=== PATIENT | female | born 2000 | race Caucasian/White ===

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

== ENCOUNTER 2018-02-09 20:01 | Emergency (ER) | payer MEDICAID ==
[2018-02-09] MEDS ORDERED: ACETAMINOPHEN 325 MG TABLET PO ONE (20:32)
[2018-02-09] MEDS ORDERED: NORMAL SALINE 1000 ML 1,000 ML IV ONE (20:34)
--- NOTE | 2018-02-09 20:37 | ER Document Report ---
ED GI/ - General Chief Complaint: Abdominal Pain Stated Complaint: STOMACH PAIN Time Seen by Provider: 02/09/18 20:27 Notes: Patient is a 17-year-old female, at 19 weeks gestation by first trimester ultrasound, that comes to the emergency department for chief complaint of mid abdominal pain that started yesterday, she states pain is sharp and has become constant. She denies nausea, vomiting, dysuria, vaginal bleeding, fever/ chills. She denies trauma. She states she ate prior to arrival without any difficulty. She states she had a normal bowel movement this evening, no constipation, denies hematochezia. Denies any daily medications, denies any surgeries, denies smoking, alcohol, recreational drugs. She has had care. Family at bedside. TRAVEL OUTSIDE OF THE [place] IN LAST 30 DAYS: No - Related Data Allergies/Adverse Reactions: shellfish derived Allergy (Verified 11/04/17 18:34) Past Medical History - General Information source: Patient - Social History Smoking Status: Never Smoker Chew tobacco use (# tins/day): No Frequency of alcohol use: None Drug Abuse: None Lives with: Family Family History: Reviewed & Not Pertinent Patient has suicidal ideation: No Patient has homicidal ideation: No Pulmonary Medical History: Reports: Hx Asthma Neurological Medical History: Reports: Hx Migraine Renal/ Medical History: Denies: Hx Peritoneal Dialysis Psychiatric Medical History: Reports: Hx Anxiety, Hx Depression - Immunizations Immunizations up to date: Yes Hx Diphtheria, Pertussis, Tetanus Vaccination: Yes Review of Systems - Review of Systems Constitutional: No symptoms reported EENT: No symptoms reported Cardiovascular: No symptoms reported Respiratory: No symptoms reported Gastrointestinal: See HPI Genitourinary: See HPI Female Genitourinary: See HPI Musculoskeletal: No symptoms reported Skin: No symptoms reported Hematologic/Lymphatic: No symptoms reported Neurological/Psychological: No symptoms reported Physical Exam - Vital signs Vitals: Temp Pulse Resp BP Pulse Ox 98.3 F 110 H 18 107/65 99 02/09/18 20:18 02/09/18 20:18 02/09/18 20:18 02/09/18 20:18 02/09/18 20:18 - Notes Notes: GENERAL: Alert, interacts well. No acute distress. HEAD: Normocephalic, atraumatic. EYES: Pupils equal, round, and reactive to light. Extraocular movements intact. ENT: Oral mucosa dry, tongue midline. Oropharynx unremarkable. Airway patent. Nares patent, no nasal septal hematoma, TM's intact. NECK: Full range of motion. Supple. Trachea midline. LUNGS: Clear to auscultation bilaterally, no wheezes, rales, or rhonchi. No respiratory distress. HEART: Mild tachycardia, normal rhythm, no murmur. ABDOMEN: Minimal generalized abdominal tenderness, nonspecific, minimally gravid abdomen. Unremarkable bowel sounds. GENITOURINARY: Deferred EXTREMITIES: Moves all 4 extremities spontaneously. No edema, normal radial and dorsalis pedis pulses bilaterally. No cyanosis. BACK: no cervical, thoracic, lumbar midline tenderness. No saddle anesthesia, normal distal neurovascular exam. NEUROLOGICAL: Alert and oriented x3. Normal speech. [cranial nerves II through XII grossly intact]. PSYCH: Normal affect, normal mood. SKIN: Warm, dry, normal turgor. No rashes or lesions noted. Course - Re-evaluation Re-evalutation: Patient alert, smiling, well-appearing. She has very minimal generalized abdominal tenderness, this is very nonspecific on examination. She states she is feeling baby move. CBC unremarkable. Chemistry nonspecific, lipase is borderline elevated at 400 but patient has a completely benign epigastric area and when I went back into reevaluate the patient after all her results have been completed patient was eating without any symptoms at all. Very low suspicion of acute pancreatitis. Ultrasound without any acute findings. Urinalysis shows borderline infection, overall chemistries and urine indicate some dehydration, patient was initially tachycardic with dry mucous membranes but this resolved after IV fluids. After IV fluids patient states she feels great and she is ready to leave. Patient will be treated with Keflex for possible UTI and , discussed follow-up , discussed return precautions, patient and family state understanding and agreement. - Vital Signs Vital signs: Temp Pulse Resp BP Pulse Ox 98.3 F 81 16 106/66 100 02/09/18 22:44 02/09/18 22:44 02/09/18 22:44 02/09/18 22:44 02/09/18 22:44 - Laboratory Result Diagrams: 02/09/18 21:14 02/09/18 21:14 Laboratory results interpreted by me: 02/09/18 02/09/18 02/09/18 21:14 21:14 22:00 RBC 3.59 L Hgb 11.1 L Hct 30.6 L MCHC 36.4 H Creatinine 0.45 L Alkaline Phosphatase 44 L Lipase 413.3 H Urine Urobilinogen 2.0 H Ur Leukocyte Esterase TRACE H Discharge - Discharge Clinical Impression: Abdominal pain affecting Condition: Stable Disposition: HOME, SELF-CARE Additional Instructions: Your evaluation is consistent with dehydration and likely developing urinary tract infection. Take Keflex as prescribed, improve her hydration at home. Ultrasound does not show any concerning abnormalities with the . Follow-up with your [employer]. Return to the emergency department for any concerning or worsening symptoms including vomiting, severe pain, fever, passing out, or any other concerning or worsening symptoms. Prescriptions: Cephalexin Monohydrate [Keflex 500 mg Capsule] 500 mg PO BID #10 capsule
[2018-02-09 21:25] LABS: ABSOLUTE EOSINOPHILS # (AUTO) 0.1 10^3/uL (0.0-0.6); ABSOLUTE LYMPHOCYTES (AUTO) 2.1 10^3/uL (0.5-4.7); ABSOLUTE MONOCYTES (AUTO) 0.6 10^3/uL (0.1-1.4); ABSOLUTE NEUT (AUTO) 5.5 10^3/uL (1.7-8.2); BASOPHILS % (AUTO) 0.2 % (0-2); EOSINOPHILS % (AUTO) 0.6 % (0-6); HEMATOCRIT 30.6 % (36.0-47.0); HEMOGLOBIN 11.1 g/dL (12.0-15.5); LYMPHOCYTES % (AUTO) 25.7 % (13-45); MEAN CORPUSCULAR HGB CONC 36.4 g/dL (32.0-36.0); MEAN CORPUSCULAR VOLUME 85 fl (80-97); MONOCYTES % (AUTO) 6.7 % (3-13); PLATELET COUNT 270 10^3/uL (150-450); RED BLOOD COUNT 3.59 10^6/uL (3.72-5.28); RED CELL DISTRIBUTION WIDTH 12.9 % (11.5-14.0); SEGMENTED NEUTROPHILS % (AUTO) 66.8 % (42-78); TOTAL CELLS COUNTED % (AUTO) 100 %; WHITE BLOOD COUNT 8.2 10^3/uL (4.0-10.5)
[2018-02-09 21:50] LABS: ALANINE AMINOTRANSFERASE 17 U/L (5-35); ALBUMIN 4.2 g/dL (3.7-5.6); ALKALINE PHOSPHATASE 44 U/L (50-135); ANION GAP 9 (5-19); ASPARTATE AMINO TRANSFERASE 16 U/L (5-30); BILIRUBIN,DIRECT 0.2 mg/dL (0.0-0.4); BILIRUBIN,TOTAL 0.5 mg/dL (0.2-1.3); BLOOD UREA NITROGEN 9 mg/dL (7-20); CALCIUM 9.6 mg/dL (8.4-10.2); CARBON DIOXIDE 24 mmol/L (22-30); CHLORIDE 106 mmol/L (98-107); GLUCOSE 102 mg/dL (75-110); LIPASE 413.3 U/L (23-300); POTASSIUM 3.9 mmol/L (3.6-5.0); SODIUM 138.6 mmol/L (137-145); TOTAL PROTEIN 6.9 g/dL (6.3-8.2)
[2018-02-09 22:28] LABS: APPEARANCE,URINE SLIGHTLY-CLOUDY; BILIRUBIN,URINE NEGATIVE (NEGATIVE); GLUCOSE, URINE NEGATIVE (NEGATIVE); KETONES,URINE NEGATIVE (NEGATIVE); LEUKOCYTE ESTERASE,URINE TRACE (NEGATIVE); NITRITE,URINE NEGATIVE (NEGATIVE); PROTEIN,URINE NEGATIVE (NEGATIVE); URINE SPECIFIC GRAVITY 1.025
[2018-02-09 22:29] LABS: COLOR,URINE YELLOW
--- NOTE | 2018-02-09 22:30 | RADIOLOGY REPORT (SQ) ---
EXAM DESCRIPTION: US LIMITED COMPLETED DATE/TME: 02/09/2018 20:33 CLINICAL HISTORY: 17 years, Female, sharp mid abd pain COMPARISON: None. TECHNIQUE: Transverse and longitudinal transabdominal sonographic images of the pelvis in a second/third trimester patient LIMITATIONS: None. FINDINGS: There is a single, live intrauterine gestation in the breech presentation. The placenta is posterior in location with a grade 1 echotexture. No evidence for previa. Cervical length is 4.5 cm. A detailed anatomic assessment was not performed at this time. Current ultrasound age is 18 weeks 6 days. No free fluid in the maternal pelvis. Some equivocal echogenic debris within the maternal urinary bladder. Correlate with urinalysis. IMPRESSION: Single, live intrauterine gestation with current ultrasound age 18 weeks 6 days. Questionable echogenic debris within the maternal urinary bladder. Correlate with urinalysis. Continued nonemergent obstetric follow-up recommended. copyright 2010 [employer]- All Rights Reserved
[2018-02-09] MEDS ORDERED: CEPHALEXIN 500 MG CAPSULE PO ONE (22:41)
[2018-02-09 22:45] VITALS: BP 106/66
== END 2018-02-09 22:51 | disposition home or self-care (01) ==
LOC: ER 20:01
DX: O26.892 Other specified pregnancy related conditions, second trimester (principal); R10.9 Unspecified abdominal pain; O99.512 Diseases of the respiratory system complicating pregnancy, second trimester; J45.909 Unspecified asthma, uncomplicated; Z3A.19 19 weeks gestation of pregnancy
CPT/HCPCS: 99284; 36415; 87086; 83690; 85025; 87088; 80053; 81001; 76815; J3490; J7030

== ENCOUNTER 2018-03-14 23:21 | Outpatient (CLI) | payer MEDICAID ==
[2018-03-15 00:19] LABS: APPEARANCE,URINE CLEAR; BILIRUBIN,URINE NEGATIVE (NEGATIVE); COLOR,URINE STRAW; GLUCOSE, URINE 50 mg/dL (NEGATIVE); KETONES,URINE TRACE mg/dL (NEGATIVE); LEUKOCYTE ESTERASE,URINE SMALL (NEGATIVE); NITRITE,URINE NEGATIVE (NEGATIVE); PROTEIN,URINE NEGATIVE (NEGATIVE); URINE SPECIFIC GRAVITY 1.006; UROBILINOGEN,URINE NEGATIVE mg/dL (<2.0)
[2018-03-15 00:34] LABS: URINE AMPHETAMINES SCREEN NEGATIVE; URINE BARBITURATES SCREEN NEGATIVE; URINE BENZODIAZEPINES SCREEN NEGATIVE; URINE COCAINE SCREEN NEGATIVE; URINE MARIJUANA (THC) SCREEN NEGATIVE; URINE METHADONE SCREEN NEGATIVE; URINE PHENCYCLIDINE SCREEN NEGATIVE
== END 2018-03-15 00:50 | disposition home or self-care (01) ==
LOC: LC 23:21
PROVIDERS: ATTEND Obstetrics & Gynecology
PROC: 4A1HXCZ Monitoring of Products of Conception, Cardiac Rate, External Approach (ICD-10-PCS; principal; 2018-03-14)
DX: O47.02 False labor before 37 completed weeks of gestation, second trimester (principal); Z3A.23 23 weeks gestation of pregnancy
CPT/HCPCS: 80307; 81001

== ENCOUNTER 2018-03-17 23:43 | Outpatient (CLI) | payer MEDICAID ==
[2018-03-18 00:20] LABS: APPEARANCE,URINE CLEAR; BILIRUBIN,URINE NEGATIVE (NEGATIVE); COLOR,URINE STRAW; GLUCOSE, URINE NEGATIVE (NEGATIVE); KETONES,URINE NEGATIVE (NEGATIVE); LEUKOCYTE ESTERASE,URINE SMALL (NEGATIVE); NITRITE,URINE NEGATIVE (NEGATIVE); PROTEIN,URINE NEGATIVE (NEGATIVE); URINE SPECIFIC GRAVITY 1.004; UROBILINOGEN,URINE NEGATIVE mg/dL (<2.0)
[2018-03-18] MEDS ORDERED: LIDOCAINE 1% INJ-PF (10 MG/ML) 30 ML SDV INJ ONE (00:26)
[2018-03-18] MEDS ORDERED: CEFTRIAXONE INJ 1000 MG VIAL IM ONE (00:26)
[2018-03-18] MEDS ORDERED: CEFTRIAXONE INJ 1000 MG VIAL ONE (00:27)
[2018-03-18] MEDS ORDERED: LIDOCAINE 1% INJ-PF (10 MG/ML) 30 ML SDV ONE (00:27)
[2018-03-18 00:33] LABS: URINE AMPHETAMINES SCREEN NEGATIVE; URINE BARBITURATES SCREEN NEGATIVE; URINE BENZODIAZEPINES SCREEN NEGATIVE; URINE COCAINE SCREEN NEGATIVE; URINE MARIJUANA (THC) SCREEN NEGATIVE; URINE METHADONE SCREEN NEGATIVE; URINE PHENCYCLIDINE SCREEN NEGATIVE
== END 2018-03-18 00:23 | disposition home or self-care (01) ==
LOC: LC 23:43
PROVIDERS: ATTEND Obstetrics & Gynecology Gynecology
PROC: 4A1HXCZ Monitoring of Products of Conception, Cardiac Rate, External Approach (ICD-10-PCS; principal; 2018-03-17)
DX: O46.92 Antepartum hemorrhage, unspecified, second trimester (principal); O99.512 Diseases of the respiratory system complicating pregnancy, second trimester; J45.909 Unspecified asthma, uncomplicated; O99.342 Other mental disorders complicating pregnancy, second trimester; F84.5 Asperger's syndrome; Z3A.24 24 weeks gestation of pregnancy
CPT/HCPCS: 59899; 87086; 81001; 80307; J3490; J0696

== ENCOUNTER 2018-04-20 23:09 | Emergency (ER) | payer MEDICAID ==
[2018-04-20 23:43] VITALS: BP 108/73
[2018-04-21] MEDS ORDERED: IPRATROPIUM/ALBUTEROL 0.5-2.5 MG/3 ML AMPUL NEB ONE
--- NOTE | 2018-04-21 00:05 | ER Document Report ---
ED General - General Chief Complaint: Breathing Difficulty Stated Complaint: DIFFICULTY BREATHING Time Seen by Provider: 04/20/18 23:41 Notes: Patient is a 17-year-old female currently 27 weeks , past medical history of asthma and psychiatric comorbidities who presents complaining of 3-4 days of cough, nasal congestion, and feeling short of breath. States symptoms started gradually, have been worsening since onset. Nothing seems to improve or worsen her symptoms. Multiple sick contacts with similar symptoms. Notes she feels somewhat short of breath as well prompting her to come to the emergency department for assessment. Has a history of similar symptoms in the past. Has not seen her primary doctor regarding today's concerns. She denies pleuritic pain, chest wall pain, fever, unilateral leg swelling, or history of DVT or pulmonary embolus. TRAVEL OUTSIDE OF THE [place] IN LAST 30 DAYS: No - Related Data Allergies/Adverse Reactions: shellfish derived Allergy (Mild, Verified 04/20/18 23:43) Past Medical History - General Information source: Patient - Social History Smoking Status: Never Smoker Frequency of alcohol use: None Drug Abuse: None Lives with: Spouse/Significant other Family History: Reviewed & Not Pertinent Patient has suicidal ideation: No Patient has homicidal ideation: No Pulmonary Medical History: Reports: Hx Asthma Neurological Medical History: Reports: Hx Migraine Renal/ Medical History: Denies: Hx Peritoneal Dialysis Psychiatric Medical History: Reports: Hx Anxiety, Hx Depression - Immunizations Immunizations up to date: Yes Hx Diphtheria, Pertussis, Tetanus Vaccination: Yes Review of Systems - Review of Systems Notes: Constitutional: Negative for fever. HENT: Negative for sore throat. Positive for sinus congestion Eyes: Negative for visual changes. Cardiovascular: Negative for chest pain. Respiratory: Positive for cough and shortness of breath Gastrointestinal: Negative for abdominal pain, vomiting or diarrhea. Genitourinary: Negative for dysuria. Musculoskeletal: Negative for back pain. Skin: Negative for rash. Neurological: Negative for headaches, weakness or numbness. 10 point ROS negative except as marked above and in HPI. Physical Exam - Vital signs Vitals: Temp Pulse Resp BP Pulse Ox 98 F 130 H 26 H 92/47 L 100 04/20/18 23:15 04/20/18 23:15 04/20/18 23:15 04/20/18 23:15 04/20/18 23:15 Interpretation: Hypotensive - Mild initial hypertension resolved at the time of my assessment. Heart rate down to 107 at the time of my assessment., Tachycardic Notes: PHYSICAL EXAMINATION: GENERAL: Well-appearing, well-nourished and in no acute distress. Repeatedly coughing HEAD: Atraumatic, normocephalic. EYES: Pupils equal round and reactive to light, extraocular movements intact, sclera anicteric, conjunctiva are normal. ENT: nares patent, oropharynx clear without exudates. Moist mucous membranes. NECK: Normal range of motion, supple without lymphadenopathy LUNGS: Breath sounds clear to auscultation bilaterally and equal. No wheezes rales or rhonchi. HEART: Regular tachycardia without murmurs ABDOMEN: Soft, nontender, normoactive bowel sounds. No guarding, no rebound. No masses appreciated. EXTREMITIES: Normal range of motion, no pitting or edema. No cyanosis. NEUROLOGICAL: No focal neurological deficits. Moves all extremities spontaneously and on command. PSYCH: Normal mood, normal affect. SKIN: Warm, Dry, normal turgor, no rashes or lesions noted. Course - Re-evaluation Re-evalutation: 04/21/18 00:01 Presentation event a well-appearing 17-year-old female in no acute distress complaining of 2-3 days of cough, nasal congestion and feelings of shortness of breath. Patient states a history of asthma, feels like this has gotten out of control. Patient is overall extremely well appearance on my initial exam. No tachypnea, retractions or or abnormal vital signs be a mild tachycardia with a heart rate of 107 at the time of my initial evaluation. Patient denies pleuritic pain, no unilateral leg swelling, no hemoptysis. She denies chest pain. Although she is mildly tachycardic at presentation, review of previous visits reveals she is consistently tachycardic even when she is not . I do not believe that workup for a pulmonary embolus is indicated given the patient's symptomology consistent with an infectious presentation including nasal congestion, sinus pressure and an obvious cough during exam. Lung exam is clear without any notable findings. Patient has declined chest x-ray which I believe is appropriate given low probability for pneumonia given absence of fever, hypoxemia or tachypnea. She has been given an albuterol inhaler here in the some improvement of her symptoms. At this time will discharge with return precautions and follow-up recommendations. Verbal discharge instructions given a the bedside and opportunity for questions given. Medication warnings reviewed. Patient is in agreement with this plan and has verbalized understanding of return precautions and the need for primary care follow-up in the next 24-72 hours. - Vital Signs Vital signs: Temp Pulse Resp BP Pulse Ox 98 F 130 H 20 108/73 100 04/20/18 23:15 04/20/18 23:15 04/20/18 23:36 04/20/18 23:36 04/20/18 23:37 Discharge - Discharge Clinical Impression: Shortness of breath, Viral upper respiratory tract infection with cough Condition: Good Disposition: HOME, SELF-CARE Additional Instructions: Your symptoms are likely due to a viral infection. The only treatment at this time is supportive care including drinking plenty of fluids, Tylenol, as and use of the inhaler with which you have been sent home with as needed for coughing and feelings of shortness of breath. Your symptoms will likely last for 7-10 days. Please return to the emergency department immediately if you become confused, have persistent vomiting, pass out, have severe headache, or have any other symptoms that are worrisome to you. Follow-up with your primary care doctor in the next several days.
== END 2018-04-21 00:20 | disposition home or self-care (01) ==
LOC: ER 23:09
DX: O99.512 Diseases of the respiratory system complicating pregnancy, second trimester (principal); J06.9 Acute upper respiratory infection, unspecified; B97.89 Other viral agents as the cause of diseases classified elsewhere; J45.909 Unspecified asthma, uncomplicated; O26.892 Other specified pregnancy related conditions, second trimester; R05 Cough; R06.02 Shortness of breath; R00.0 Tachycardia, unspecified; R09.81 Nasal congestion; Z3A.27 27 weeks gestation of pregnancy; Z91.013 Allergy to seafood
CPT/HCPCS: 94640; 99284; J7620

== ENCOUNTER 2018-04-26 17:39 | Emergency (ER) | payer MEDICAID ==
[2018-04-26] MEDS ORDERED: ACETAMINOPHEN 325 MG TABLET PO ONE (17:47)
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
--- NOTE | 2018-04-26 20:02 | RADIOLOGY REPORT (SQ) ---
EXAM DESCRIPTION: ELBOW LEFT AP/LATERAL COMPLETED DATE/TIME: 04/26/2018 7:31 pm REASON FOR STUDY: fall, pain COMPARISON: None. EXAM PARAMETERS: NUMBER OF VIEWS: Two view. TECHNIQUE: AP and lateral radiographic images acquired of the left elbow. LIMITATIONS: None. FINDINGS: MINERALIZATION: Normal. BONES: No acute fracture or dislocation. No worrisome bone lesions. JOINTS: No effusion. SOFT TISSUES: No significant soft tissue swelling. No radiopaque foreign body. OTHER: No other significant finding. IMPRESSION: NO FRACTURE. TECHNICAL DOCUMENTATION: JOB ID: [id number] [place]-72 2010 [employer]- All Rights Reserved Reading location - IP/workstation name: [email or web address]
--- NOTE | 2018-04-26 20:13 | RADIOLOGY REPORT (SQ) ---
EXAM DESCRIPTION: XR WRIST 3 OR MORE VIEWS COMPLETED DATE/TME: 04/26/2018 19:11 CLINICAL HISTORY: 17 years, Female, fall, pain COMPARISON: None. FINDINGS: No fracture or dislocation. Soft tissues are unremarkable. IMPRESSION: No acute abnormality.
[2018-04-26 21:03] VITALS: BP 103/56
== END 2018-04-26 21:05 | disposition home or self-care (01) ==
LOC: ER 17:39
DX: O9A.212 Injury, poisoning and certain other consequences of external causes complicating pregnancy, second trimester (principal); S69.92XA Unspecified injury of left wrist, hand and finger(s), initial encounter; S59.902A Unspecified injury of left elbow, initial encounter; O26.892 Other specified pregnancy related conditions, second trimester; M25.552 Pain in left hip; O99.512 Diseases of the respiratory system complicating pregnancy, second trimester; J45.909 Unspecified asthma, uncomplicated; Z3A.26 26 weeks gestation of pregnancy; W01.0XXA Fall on same level from slipping, tripping and stumbling without subsequent striking against object, initial encounter
CPT/HCPCS: 99283; 73070; 73110; J3490

== ENCOUNTER 2018-05-01 10:38 | Emergency (ER) | payer MEDICAID ==
[2018-05-01] MEDS ORDERED: DEXTROSE 5%-1/2 NORMAL SALINE 500 ML IV ONE (11:28)
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
[2018-05-01 12:02] LABS: APPEARANCE,URINE CLOUDY; BILIRUBIN,URINE NEGATIVE (NEGATIVE); COLOR,URINE YELLOW; GLUCOSE, URINE NEGATIVE (NEGATIVE); KETONES,URINE NEGATIVE (NEGATIVE); LEUKOCYTE ESTERASE,URINE LARGE (NEGATIVE); NITRITE,URINE NEGATIVE (NEGATIVE); PROTEIN,URINE 30 mg/dL (NEGATIVE); URINE SPECIFIC GRAVITY 1.006
[2018-05-01 12:12] LABS: ABSOLUTE BASOPHILS # (AUTO) 0.1 10^3/uL (0.0-0.2); ABSOLUTE LYMPHOCYTES (AUTO) 8.8 10^3/uL (0.5-4.7); ABSOLUTE MONOCYTES (AUTO) 1.8 10^3/uL (0.1-1.4); ABSOLUTE NEUT (AUTO) 7.7 10^3/uL (1.7-8.2); BASOPHILS % (AUTO) 0.8 % (0-2); HEMATOCRIT 28.6 % (36.0-47.0); LYMPHOCYTES % (AUTO) 47.6 % (13-45); MEAN CORPUSCULAR VOLUME 89 fl (80-97); MONOCYTES % (AUTO) 9.9 % (3-13); PLATELET COUNT 349 10^3/uL (150-450); RED BLOOD COUNT 3.23 10^6/uL (3.72-5.28); RED CELL DISTRIBUTION WIDTH 14.1 % (11.5-14.0); SEGMENTED NEUTROPHILS % (AUTO) 41.7 % (42-78); TOTAL CELLS COUNTED % (AUTO) 100 %; WHITE BLOOD COUNT 18.4 10^3/uL (4.0-10.5)
[2018-05-01 12:26] LABS: A TYPE INFLUENZA AG NEGATIVE (NEGATIVE); B INFLUENZA AG NEGATIVE (NEGATIVE)
[2018-05-01 12:32] LABS: ALANINE AMINOTRANSFERASE 68 U/L (5-35); ALBUMIN 3.6 g/dL (3.7-5.6); ALKALINE PHOSPHATASE 209 U/L (50-135); ANION GAP 10 (5-19); ASPARTATE AMINO TRANSFERASE 74 U/L (5-30); BILIRUBIN,DIRECT 0.7 mg/dL (0.0-0.4); BILIRUBIN,TOTAL 1.1 mg/dL (0.2-1.3); BLOOD UREA NITROGEN 8 mg/dL (7-20); CALCIUM 9.3 mg/dL (8.4-10.2); CARBON DIOXIDE 22 mmol/L (22-30); CHLORIDE 103 mmol/L (98-107); GLUCOSE 87 mg/dL (75-110); POTASSIUM 4.4 mmol/L (3.6-5.0); SODIUM 134.9 mmol/L (137-145); TOTAL PROTEIN 7.2 g/dL (6.3-8.2)
[2018-05-01] MEDS ORDERED: NITROFURANTOIN MONOHYD/M-CRYST 100 MG CAPSULE PO ONE (12:46)
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
[2018-05-01 14:19] VITALS: BP 108/65
== END 2018-05-01 14:19 | disposition home or self-care (01) ==
LOC: ER 10:38
DX: O23.42 Unspecified infection of urinary tract in pregnancy, second trimester (principal); O26.892 Other specified pregnancy related conditions, second trimester; R50.9 Fever, unspecified; R05 Cough; O99.512 Diseases of the respiratory system complicating pregnancy, second trimester; J45.909 Unspecified asthma, uncomplicated; Z3A.00 Weeks of gestation of pregnancy not specified; Z91.013 Allergy to seafood
CPT/HCPCS: 99283; 96360; 36415; 87086; 85025; 87088; 80053; 81001; 87186; 87804; J7070; J3490; J8499

== ENCOUNTER 2018-05-11 07:26 | Inpatient (IN) | payer MEDICAID ==
[2018-05-11] MEDS ORDERED: OXYTOCIN 10 UNIT/ML VIAL ONE (07:59)
[2018-05-11] MEDS ORDERED: LIDOCAINE 1% INJ-PF (10 MG/ML) 30 ML SDV ONE (07:59)
[2018-05-11] MEDS ORDERED: OXYTOCIN/NORMAL SALINE 0 UNIT/0 ML RTUINJ ONE (07:59)
[2018-05-11] MEDS ORDERED: MISOPROSTOL 0.2 MG TABLET ONE (07:59)
[2018-05-11 08:11] LABS: APPEARANCE,URINE CLOUDY; BILIRUBIN,URINE NEGATIVE (NEGATIVE); COLOR,URINE AMBER; GLUCOSE, URINE NEGATIVE (NEGATIVE); KETONES,URINE NEGATIVE (NEGATIVE); LEUKOCYTE ESTERASE,URINE MODERATE (NEGATIVE); NITRITE,URINE POSITIVE (NEGATIVE); PROTEIN,URINE 30 mg/dL (NEGATIVE); URINE SPECIFIC GRAVITY 1.016
[2018-05-11] MEDS ORDERED: METHYLERGONOVINE MALEATE INJ/PF 0.2 MG/1 ML AMPULE ONE (08:18)
[2018-05-11 08:38] LABS: URINE AMPHETAMINES SCREEN NEGATIVE; URINE BARBITURATES SCREEN NEGATIVE; URINE BENZODIAZEPINES SCREEN NEGATIVE; URINE COCAINE SCREEN NEGATIVE; URINE MARIJUANA (THC) SCREEN NEGATIVE; URINE METHADONE SCREEN NEGATIVE; URINE PHENCYCLIDINE SCREEN NEGATIVE
[2018-05-11] MEDS ORDERED: MEASLES,MUMPS&RUBELLA VACC/PF 0.5 ML VIAL SUBCUT PRN (09:05)
[2018-05-11] MEDS ORDERED: ACETAMINOPHEN 650 MG SUPP.RECT PR PRN (09:05)
[2018-05-11] MEDS ORDERED: DIPH/PERTUSS(ACELL)/TETANUS VAC/PF 0.5 ML SYR (>=10YO) IM PRN (09:05)
[2018-05-11] MEDS ORDERED: PROMETHAZINE HCL 25 MG TABLET PO PRN (09:05)
[2018-05-11] MEDS ORDERED: GLYCERIN/WITCH HAZEL LEAF 1 EACH MED..PAD TP PRN (09:05)
[2018-05-11] MEDS ORDERED: DIBUCAINE 1% OINTMENT 56 GM TP PRN (09:05)
[2018-05-11] MEDS ORDERED: PROMETHAZINE HCL INJ 25 MG/1 ML VIAL IV PRN (09:05)
[2018-05-11] MEDS ORDERED: PSEUDOEPHEDRINE HCL 30 MG TABLET PO PRN (09:05)
[2018-05-11] MEDS ORDERED: OXYTOCIN/NORMAL SALINE 20 UNIT/1,000 ML RTUINJ IV PRN (09:05)
[2018-05-11] MEDS ORDERED: ACETAMINOPHEN WITH CODEINE #3 TABLET PO PRN ×2 (09:05)
[2018-05-11] MEDS ORDERED: ZOLPIDEM TARTRATE 5 MG TABLET PO PRN (09:05)
[2018-05-11] MEDS ORDERED: DIPHENHYDRAMINE HCL 25 MG CAPSULE PO PRN (09:05)
[2018-05-11] MEDS ORDERED: BENZOCAINE/MENTHOL AEROSOL SPRAY 56 ML TOP PRN (09:05)
[2018-05-11] MEDS ORDERED: PROMETHAZINE HCL 25 MG SUPP.RECT PR PRN (09:05)
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
[2018-05-11 09:58] LABS: ABSOLUTE LYMPHOCYTES (AUTO) 2.8 10^3/uL (0.5-4.7); ABSOLUTE MONOCYTES (AUTO) 0.5 10^3/uL (0.1-1.4); ABSOLUTE NEUT (AUTO) 7.9 10^3/uL (1.7-8.2); BASOPHILS % (AUTO) 0.2 % (0-2); EOSINOPHILS % (AUTO) 0.1 % (0-6); HEMATOCRIT 31.5 % (36.0-47.0); HEMOGLOBIN 11.2 g/dL (12.0-15.5); LYMPHOCYTES % (AUTO) 24.6 % (13-45); MEAN CORPUSCULAR HEMOGLOBIN 31.2 pg (27.0-33.4); MEAN CORPUSCULAR HGB CONC 35.5 g/dL (32.0-36.0); MEAN CORPUSCULAR VOLUME 88 fl (80-97); MONOCYTES % (AUTO) 4.6 % (3-13); PLATELET COUNT 447 10^3/uL (150-450); RED BLOOD COUNT 3.58 10^6/uL (3.72-5.28); RED CELL DISTRIBUTION WIDTH 13.2 % (11.5-14.0); SEGMENTED NEUTROPHILS % (AUTO) 70.5 % (42-78); TOTAL CELLS COUNTED % (AUTO) 100 %; WHITE BLOOD COUNT 11.2 10^3/uL (4.0-10.5)
[2018-05-11 10:18] LABS: CHLAM PCR NOT DETECTED (NOT DETECT); GON PCR NOT DETECTED (NOT DETECT)
--- NOTE | 2018-05-11 12:00 | Delivery Summary ---
Del Sum A-C Datetime Report Generated by CPN: 05/11/2018 12:00 DELIVERY PERSONNEL DELIVERY PERSONNEL: [id number] Delivery Doctor:: Viviana Guillen MD Labor and Delivery Nurse:: Eitan Lobo RN Labor and Delivery Nurse:: Elo Pro RN Spike Machine Heater:: ROSE Flores Scraper Operator:: Linus Pattno MD Nurse Practitioner:: YESICA Moise Chemistry Teacher/FRENCH WEAVER: Catie Chirinos, ST MATERNAL INFORMATION Delivery Anesthesia: None Medications During Delivery: None Medications After Delivery: Pitocin 10 Units IM; Methergine 0.2mg IM; Cytotec 1000mcg Per Rectum/Vagina Maternal Complications: None Provider Comments: Upon examining the patient it was noted that there was only a bulging membrane. The NICU team was immediately called. Genital swabs in the form of GBS and GC/CT were collected. Once the NICU team was in the room, amniotomy was performed for clear fluid. The patient was asked to do coordinated pushes with contractions. When it was noted the heart tones were sustained in the 80s and the head was also , ridkens maneuver was employed to expedite delivery of the vertex. Cord was immediately clamped and cut after noting there was no tone or cry. The was taken directly to the warmer where the NICU team with the felt cutting machine operator were waiting. Intramuscular pitocin was given along with fundal massage. A normal appearing placenta with 3 vessel cord was delivered. After delivery of and placenta, the vagina and perineum were inspected and noted to be intact. After cleaning the patient up and changing pads, patient had a gush of blood and uterus was noted to be boggy. Patient did not have an IV, therefore an aggressive fundal massage, 1000mcg of rectal misoprostol and IM methergine was given. Uterus firmed eventially and bleeding was normal. Aggressive actions were taken because patient had no IV. Total blood loss for delivery was about 150ml. LABOR SUMMARY EDC: 07/07/2018 00:00 No. Babies in Womb: 1 Attempted: No Labor Anesthesia: None LABOR INFORMATION Reason for Induction: Not Applicable Onset of Labor: 05/11/2018 22:00 Complete Dilatation: 05/11/2018 07:52 Oxytocin: N/A Group B Beta Strep: unknown Steroids Given: None Reason Steroids Not Administered: Not Applicable MEMBRANES Membranes Rupture Method: Artificial Rupture of Membranes: 05/11/2018 08:03 (Annotations: Artificially ruptured) Length of Rupture (hr): 0.07 Amniotic Fluid Color: Clear Amniotic Fluid Amount: Moderate Amniotic Fluid Odor: None STAGES OF LABOR Stage 1 hr: -14 Stage 1 min: -8 Stage 2 hr: 0 Stage 2 min: 15 Stage 3 hr: 0 Stage 3 min: 5 Total Time in Labor hr: -13 Total Time in Labor min: -48 VAGINAL DELIVERY Episiotomy: None Laceration #1: None Laceration Repair: Not Applicable Sponge Count Correct: Yes Sharps Count Correct: Yes CSECTION DELIVERY Primary Indication: N/A Secondary Indication: N/A CSection Incidence: N/A Labor: N/A Elective: N/A CSection Incision: N/A Uterine Closure: N/A BABY A INFORMATION Delivery Date/Time: 05/11/2018 08:07 Method of Delivery: Vaginal Born in Route : No : N/A Forceps: N/A Vacuum Extraction: N/A Shoulder Dystocia : No PRESENTATION/POSITION BABY A Presentation: Cephalic Cephalic Presentation: Vertex Vertex Position: Right Occipital Anterior Breech Presentation: N/A PLACENTA INFORMATION BABY A Placenta Delivery Time : 05/11/2018 08:12 Placenta Method of Delivery: Spontaneous Placenta Status: Delivered SCORES BABY A Heart Rate 1 min: >100 bpm Resp Effort 1 min: Slow, Irregular Reflex Irritability 1 min: Cough or Sneeze or Pulls Away Muscle Tone 1 min: Some Flexion of Extremities Color 1 min: Body [place], Extremities Blue Resuscitation Effort 1 min: PPV/NCPAP SCORE 1 MIN: 7 Heart Rate 5 min: >100 bpm Resp Effort 5 min: Slow, Irregular Reflex Irritability 5 min: Cough or Sneeze or Pulls Away Muscle Tone 5 min: Active Motion Color 5 min: Body [place], Extremities Blue Resuscitation Effort 5 min: PPV/NCPAP SCORE 5 MIN: 8 INFORMATION BABY A Gestational Age at Delivery: 31.6 Gestational Status: - <34 Weeks Outcome : Liveborn Infant Condition : Fair Sex: Male IDENTIFICATION BABY A Verification Date/Time: 05/11/2018 08:41 ID Band Number: [id number] Mother's Name Verified: Yes Infant RN Verifying Infant: D Laureen RN/H Jessenia RN WEIGHT/LENGTH BABY A Birthweight (gm): 1850 Weight (lb): 4 Weight (oz): 1 Infant Length (in): 17.00 Infant Length (cm): 43.18 CORD INFORMATION BABY A No. Cord Vessels: 3 Nuchal Cord : N/A Cord Blood Taken: Yes-For Storage (Mom's Blood type +) Suction: Mouth; Nose ASSESSMENT BABY A Skin to Skin: No Skin to Skin Time (min): 0 BABY B INFORMATION : N/A SIGNATURES Signature: with User ID: [email or web address]
[2018-05-11] MEDS: FERROUS SULFATE 325 MG TABLET PO SCH ×2 (12:55→17:32)
[2018-05-11] MEDS: SENNOSIDES/DOCUSATE 8.6-50 MG 1 EACH TABLET PO SCH (12:55)
[2018-05-11] MEDS: DOCUSATE SODIUM 100 MG CAPSULE PO SCH ×2 (12:55→17:32)
[2018-05-11] MEDS: FAMOTIDINE 20 MG TABLET PO SCH ×2 (12:56→22:31)
[2018-05-11] MEDS: PRENATAL VITAMIN W DHA CAPSULE PO SCH (12:56)
[2018-05-11] MEDS: IBUPROFEN 800 MG TABLET PO SCH ×2 (14:39→22:31)
[2018-05-11] MEDS ORDERED: NITROFURANTOIN MONOHYD/M-CRYST 100 MG CAPSULE PO ONE (20:00)
[2018-05-12] MEDS: IBUPROFEN 800 MG TABLET PO SCH ×3 (05:48→22:20)
[2018-05-12 08:20] LABS: HEMATOCRIT 29.9 % (36.0-47.0); HEMOGLOBIN 10.4 g/dL (12.0-15.5); MEAN CORPUSCULAR HEMOGLOBIN 30.7 pg (27.0-33.4); MEAN CORPUSCULAR HGB CONC 34.7 g/dL (32.0-36.0); MEAN CORPUSCULAR VOLUME 88 fl (80-97); PLATELET COUNT 448 10^3/uL (150-450); RED BLOOD COUNT 3.39 10^6/uL (3.72-5.28); RED CELL DISTRIBUTION WIDTH 13.5 % (11.5-14.0); WHITE BLOOD COUNT 11.5 10^3/uL (4.0-10.5)
[2018-05-12] MEDS: PRENATAL VITAMIN W DHA CAPSULE PO SCH (09:12)
[2018-05-12] MEDS: FERROUS SULFATE 325 MG TABLET PO SCH ×2 (09:13→17:42)
[2018-05-12] MEDS: DOCUSATE SODIUM 100 MG CAPSULE PO SCH ×2 (09:13→17:42)
[2018-05-12] MEDS: SENNOSIDES/DOCUSATE 8.6-50 MG 1 EACH TABLET PO SCH (09:13)
[2018-05-12] MEDS: FAMOTIDINE 20 MG TABLET PO SCH ×2 (09:14→22:20)
--- NOTE | 2018-05-12 10:32 | PDOC PROGRESS REPORT ---
Subjective-OB Progress Note for:: 05/12/18 Subjective: reports bleeding slowing, pain controlled with current meds, denies needs Physical Exam (OB) Vital Signs: Temp Pulse Resp BP Pulse Ox 98.2 F 75 16 99/71 L 100 05/11/18 20:41 05/12/18 08:00 05/12/18 08:00 05/12/18 08:00 05/12/18 08:00 Intake & Output 05/11/18 05/12/18 05/13/18 06:59 06:59 06:59 Intake Total 500 Balance 500 Weight 53.4 kg - Abdomen Description: Soft, Round Hernia Present: No Fundal Description: Firm, Midline Fundal Height: u/3 - u/4 - Abdominal Distension: No distension Tenderness: Nontender - Extremities Lower extremities: Yehuda's sign - neg Calf: Normal, Nontender Objective-Diagnostic Laboratory: 05/12/18 08:10 05/11/18 05/12/18 09:45 08:10 WBC 11.5 H RBC 3.39 L Hgb 10.4 L Hct 29.9 L MCV 88 MCH 30.7 MCHC 34.7 RDW 13.5 Plt Count 448 Blood Type A POSITIVE Antibody Screen NEGATIVE Assessment and Plan(PN) - Assessment and Plan (1) delivery Is this a current diagnosis for this admission?: Yes - Time Spent with Patient Time with patient: Less than 15 minutes Medications reviewed and adjusted accordingly: Yes - Disposition Anticipated Discharge: Home Within: within 24 hours
[2018-05-12] MEDS: NITROFURANTOIN MONOHYD/M-CRYST 100 MG CAPSULE PO SCH ×2 (11:57→17:42)
[2018-05-13] MEDS: IBUPROFEN 800 MG TABLET PO SCH ×2 (05:04→13:05)
[2018-05-13] MEDS: PRENATAL VITAMIN W DHA CAPSULE PO SCH (09:00)
[2018-05-13] MEDS: FAMOTIDINE 20 MG TABLET PO SCH (09:00)
[2018-05-13] MEDS: SENNOSIDES/DOCUSATE 8.6-50 MG 1 EACH TABLET PO SCH (09:00)
[2018-05-13] MEDS: NITROFURANTOIN MONOHYD/M-CRYST 100 MG CAPSULE PO SCH (09:01)
[2018-05-13] MEDS: FERROUS SULFATE 325 MG TABLET PO SCH (09:01)
[2018-05-13] MEDS: DOCUSATE SODIUM 100 MG CAPSULE PO SCH (09:01)
--- NOTE | 2018-05-13 09:06 | PDOC DISCHARGE SUMMARY ---
Final Diagnosis Discharge Date: 05/13/18 - Final Diagnosis (1) (normal spontaneous vaginal delivery) Is this a current diagnosis for this admission?: Yes (2) delivery Is this a current diagnosis for this admission?: Yes Discharge Data - Discharge Medication Home Medications: Pnv No.95/Ferrous Fum/Folic AC [ Vitamins Tablet] 1 tab PO DAILY 03/18/18 Reason(s) for Admission: Onset of Labor, Labor Procedures: None Intrapartum Procedure(s): Spontaneous Vaginal Delivery - Diagnosis Test Laboratory: Temp Pulse Resp BP Pulse Ox 97.8 F 80 16 107/77 100 05/13/18 07:37 05/13/18 07:37 05/13/18 07:37 05/13/18 07:37 05/13/18 07:37 05/11/18 05/11/18 05/12/18 07:33 09:45 08:10 RBC 3.58 L 3.39 L Hgb 11.2 L 10.4 L Hct 31.5 L 29.9 L Urine Opiates Screen NEGATIVE - Discharge information/Instructions Discharge Activity: Activity As Tolerated, Pelvic Rest Discharge Diet: Regular Disposition: HOME, SELF-CARE Follow up with: [facility] in: 4, Weeks
[2018-05-13 10:15] VITALS: BP 99/71
--- NOTE | 2018-05-13 10:34 | PDOC PROGRESS REPORT ---
Subjective-OB Progress Note for:: 05/13/18 Subjective: Recieved call from [facility], pt has + urine culture for E-coli. Pt informed. Physical Exam (OB) Vital Signs: Temp Pulse Resp BP Pulse Ox 97.8 F 80 16 99/71 L 100 05/13/18 10:13 05/13/18 10:13 05/13/18 10:13 05/13/18 10:13 05/13/18 10:13 Intake & Output 05/12/18 05/13/18 05/14/18 06:59 06:59 06:59 Intake Total 500 1999 Balance 500 1999 Weight 53.4 kg - PIH/Pre-Eclampsia DTR's: 1 + Clonus: Negative Headache: Absent Epigastric Pain: No Visual Changes: No - Lochia Lochia Amount: Scant < 10 ml Lochia Color: Rubra/Red - Abdomen Description: Soft, Round Hernia Present: No Fundal Description: Firm, Midline Fundal Height: u/u - u/2 Objective-Diagnostic Laboratory: 05/12/18 08:10 05/11/18 08:00 Vaginal/Anorectal Group B Streptococcus Culture - Final NO GROUP B STREPTOCOCCUS RECOVERED Assessment and Plan(PN) - Assessment and Plan (1) (normal spontaneous vaginal delivery) Is this a current diagnosis for this admission?: Yes (2) delivery Is this a current diagnosis for this admission?: Yes Plan:: Discussed with patient will treat with Keflex - Time Spent with Patient Time with patient: Less than 15 minutes Medications reviewed and adjusted accordingly: Yes - Disposition Anticipated Discharge: Home Within: within 24 hours
== END 2018-05-13 13:50 | disposition home or self-care (01) | DRG 806 ==
LOC: LC 07:26 → EEVIPCON 08:08 → LR 08:08 → 2S 12:00 → 2N 05-12
PROVIDERS: ADMIT Obstetrics & Gynecology; ATTEND Obstetrics & Gynecology
PROC: 10E0XZZ Delivery of Products of Conception, External Approach (ICD-10-PCS; principal; 2018-05-11)
PROC: 10907ZC Drainage of Amniotic Fluid, Therapeutic from Products of Conception, Via Natural or Artificial Opening (ICD-10-PCS; 2018-05-11)
PROC: 4A1HX4Z Monitoring of Products of Conception, Cardiac Electrical Activity, External Approach (ICD-10-PCS; 2018-05-11)
DX: O60.14X0 Preterm labor third trimester with preterm delivery third trimester, not applicable or unspecified (principal); F84.5 Asperger's syndrome; Z37.0 Single live birth; O99.344 Other mental disorders complicating childbirth; M41.9 Scoliosis, unspecified; Z3A.31 31 weeks gestation of pregnancy; O67.9 Intrapartum hemorrhage, unspecified; F32.9 Major depressive disorder, single episode, unspecified; F41.9 Anxiety disorder, unspecified; F98.8 Other specified behavioral and emotional disorders with onset usually occurring in childhood and adolescence; Z62.810 Personal history of physical and sexual abuse in childhood; Z87.440 Personal history of urinary (tract) infections
CPT/HCPCS: 36415; 80307; 81001; 85025; 85027; 86592; 86850; 86900; 86901; 87081; 87491; 87591; 88307; J2210; J2590; J3490; J8499

== ENCOUNTER 2019-10-29 13:30 | Emergency (ER) | payer MEDICAID ==
--- NOTE | 2019-10-29 13:44 | ER Document Report ---
ED General - General Stated Complaint: FALL,ELBOW PAIN Primary Care Provider: HARJEET STALLINGS PA-C [PHYSICIAN MANUFACTURING MACHINE OPERATOR] - Follow up as needed Mode of Arrival: Medic Information source: Patient Notes: Patient is a 18-year-old female presenting to the emergency department chief complaint of accidental fall resulting in left arm pain. Patient states she was walking out of her house and misstepped falling on outstretched left arm. Patient is complaining of wrist elbow and shoulder pain. Patient gives it a 5 out of 5 pain level. Patient is able still to move her fingers without difficulty. Sensation is intact distally. Patient denies chest pain dizziness shortness of breath palpitations prior to the fall. Patient denies nausea vomiting diarrhea fevers chills cough or cold. TRAVEL OUTSIDE OF THE [place] IN LAST 30 DAYS: No - HPI Onset: Just prior to arrival Onset/Duration: Sudden Quality of pain: Throbbing Severity: Severe Pain Level: 5 Associated symptoms: None Exacerbated by: Movement Relieved by: Denies Similar symptoms previously: No Recently seen / treated by doctor: No - Related Data Allergies/Adverse Reactions: shellfish derived Allergy (Mild, Verified 05/01/18 10:42) Past Medical History - General Information source: Patient - Social History Smoking Status: Never Smoker Chew tobacco use (# tins/day): No Frequency of alcohol use: None Drug Abuse: None Lives with: Family Family History: Reviewed & Not Pertinent Patient has suicidal ideation: No Patient has homicidal ideation: No Pulmonary Medical History: Reports: Hx Asthma Neurological Medical History: Reports: Hx Migraine Renal/ Medical History: Denies: Hx Peritoneal Dialysis Psychiatric Medical History: Reports: Hx Anxiety, Hx Depression - Immunizations Immunizations up to date: Yes Hx Diphtheria, Pertussis, Tetanus Vaccination: Yes Review of Systems - Review of Systems Constitutional: No symptoms reported EENT: No symptoms reported Cardiovascular: No symptoms reported Respiratory: No symptoms reported Gastrointestinal: No symptoms reported Genitourinary: No symptoms reported Female Genitourinary: No symptoms reported Musculoskeletal: See HPI Skin: No symptoms reported Hematologic/Lymphatic: No symptoms reported Neurological/Psychological: No symptoms reported -: Yes All other systems reviewed and negative Physical Exam - Vital signs Vitals: Temp 98.1 F 10/29/19 13:30 - Notes Notes: PHYSICAL EXAMINATION: GENERAL: Well-appearing, well-nourished and in no acute distress. HEAD: Atraumatic, normocephalic. EYES: Pupils equal round and reactive to light, extraocular movements intact, sclera anicteric, conjunctiva are normal. ENT: nares patent, oropharynx clear without exudates. Moist mucous membranes. NECK: Normal range of motion, supple without lymphadenopathy, no appreciable JVD LUNGS: Lungs clear to auscultation bilaterally and equal. No wheezes rales or rhonchi. HEART: Regular rate and rhythm without murmurs ABDOMEN: Soft, nontender, normal bowel sounds. No guarding, no rebound. No masses appreciated. EXTREMITIES: Active full range of motion x3, limitation is patient is unable to move left wrist elbow or shoulder secondary to pain light palpation does elicit a pain response. No pitting or edema. No cyanosis. 2+ pulses x4 NEUROLOGICAL: No focal neurological deficits. Moves all extremities spontaneously and on command. SKIN: Warm, Dry, and intact. Normal turgor, no rashes or lesions noted. Course - Re-evaluation Re-evalutation: 10/29/19 15:08 I discussed the negative findings with the patient. I had reviewed the x-rays and I have reviewed the x-ray dictation by radiologist. Patient will be given instructions to rest ice and elevate the extremity. Patient will be discharged home in stable condition given prescription for ibuprofen. - Vital Signs Vital signs: Temp Pulse Resp BP Pulse Ox 98.1 F 10/29/19 13:30 - Diagnostic Test Radiology reviewed: Image reviewed, Reports reviewed Discharge - Discharge Clinical Impression: Accidental fall Qualifiers: Encounter type: initial encounter Qualified Code(s): W19.XXXA - Unspecified fall, initial encounter Arm contusion Qualifiers: Encounter type: initial encounter Laterality: left Qualified Code(s): S40.022A - Contusion of left upper arm, initial encounter Condition: Stable Disposition: HOME, SELF-CARE Additional Instructions: Contusion Your injury has resulted in a contusion -- a crushing of the deep tissues. No injury to important structures was detected during the physician's exam. Contusions vary in the amount of pain they cause, and in the length of time required for healing. Typically, the area will become bruised, and will remain painful to touch for two or three weeks. However, most patients are back to working and playing within a few days. After the initial period of rest and cold-packs, your symptoms (together with the doctor's recommendations) will determine how rapidly you can get back to full activity. Usually this means "do what feels okay, but don't do things that hurt." If re-examination was recommended, it's important to follow up as in structed. Call the doctor or return any time if pain increases, if swelling becomes severe, if you develop numbness or weakness in an injured extremity, or if any other alarming symptoms occur. Prescriptions: Ibuprofen [Ibu] 600 mg PO Q8HP PRN #20 tablet PRN Reason: Forms: Return to Work Referrals: HARJEET STALLINGS PA-C [PHYSICIAN MANUFACTURING MACHINE OPERATOR] - Follow up as needed
[2019-10-29] MEDS ORDERED: HYDROCODONE/ACETAMINOPHEN 5-325 MG TABLET PO ONE (14:46)
[2019-10-29] MEDS ORDERED: ONDANSETRON 4 MG TAB.RAPDIS PO ONE (14:46)
--- NOTE | 2019-10-29 14:53 | RADIOLOGY REPORT (SQ) ---
EXAM DESCRIPTION: ELBOW LEFT AP/LATERAL IMAGES COMPLETED DATE/TIME: 10/29/2019 2:39 pm REASON FOR STUDY: fall COMPARISON: None. NUMBER OF VIEWS: Two views. TECHNIQUE: AP and lateral radiographic images acquired of the left elbow. LIMITATIONS: None. FINDINGS: MINERALIZATION: Normal. BONES: No acute fracture or dislocation. JOINT: No effusion. SOFT TISSUES: No soft tissue swelling or radiopaque foreign body. OTHER: No other finding. IMPRESSION: No acute osseous abnormality of the left elbow. TECHNICAL DOCUMENTATION: JOB ID: [id number] [employer]- All Rights Reserved Reading location - IP/workstation name: [email or web address]
--- NOTE | 2019-10-29 14:55 | RADIOLOGY REPORT (SQ) ---
EXAM DESCRIPTION: SHOULDER LEFT 2 OR MORE VIEWS IMAGES COMPLETED DATE/TIME: 10/29/2019 2:39 pm REASON FOR STUDY: fall COMPARISON: None. NUMBER OF VIEWS: Two views. TECHNIQUE: AP and scapular Y images acquired of the left shoulder. LIMITATIONS: None. FINDINGS: MINERALIZATION: Normal. BONES: No acute fracture. JOINTS: No dislocation. VISUALIZED LUNGS AND RIBS: No pneumothorax or rib fracture. SOFT TISSUES: No radiopaque foreign body. OTHER: No other finding. IMPRESSION: No acute osseous abnormality of the left shoulder. TECHNICAL DOCUMENTATION: JOB ID: [id number] [email or web address]- All Rights Reserved Reading location - IP/workstation name: [email or web address]
--- NOTE | 2019-10-29 14:57 | RADIOLOGY REPORT (SQ) ---
EXAM DESCRIPTION: WRIST LEFT 2 VIEWS IMAGES COMPLETED DATE/TIME: 10/29/2019 2:39 pm REASON FOR STUDY: fall COMPARISON: None. NUMBER OF VIEWS: Two views. TECHNIQUE: AP and lateral radiographic images acquired of the left wrist. LIMITATIONS: None. FINDINGS: MINERALIZATION: Normal. BONES: No acute fracture or dislocation. The normal carpal alignment is preserved. SOFT TISSUES: No soft tissue swelling or radiopaque foreign body. OTHER: No other finding. IMPRESSION: No acute osseous abnormality of the left wrist. TECHNICAL DOCUMENTATION: JOB ID: [id number] [email or web address]- All Rights Reserved Reading location - IP/workstation name: [email or web address]
== END 2019-10-29 15:18 | disposition home or self-care (01) ==
LOC: ER 13:30 → EEVIPCON 13:30 → ER 15:18
DX: S40.022A Contusion of left upper arm, initial encounter (principal); M25.522 Pain in left elbow; W01.0XXA Fall on same level from slipping, tripping and stumbling without subsequent striking against object, initial encounter; Y92.009 Unspecified place in unspecified non-institutional (private) residence as the place of occurrence of the external cause
CPT/HCPCS: 99283; 73070; 73030; 73100; S0119

== ENCOUNTER 2020-02-02 01:41 | Emergency (ER) | payer MEDICAID ==
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
[2020-02-02 06:40] VITALS: BP 104/66
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
== END 2020-02-02 07:12 | disposition home or self-care (01) ==
LOC: ER 01:41
DX: S80.211A Abrasion, right knee, initial encounter (principal); S06.9X9A Unspecified intracranial injury with loss of consciousness of unspecified duration, initial encounter; Y04.0XXA Assault by unarmed brawl or fight, initial encounter
CPT/HCPCS: 70450; 72125; 99284